=== PATIENT | female | born 1995 | race Caucasian/White ===

== ENCOUNTER 2020-11-29 23:53 | Emergency (ER) | payer BC ==
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
== END 2020-11-30 04:15 | disposition home or self-care (01) ==
LOC: JP.ED 23:53
DX: T76.21XA Adult sexual abuse, suspected, initial encounter (principal)
CPT/HCPCS: 99284